=== PATIENT | female | born 1940 | race Caucasian/White ===

== ENCOUNTER 2016-12-17 22:08 | Inpatient (IN) | payer MEDICARE, OTHER ==
[2016-12-17 22:26] LABS: #Basophils 0.1 thou/uL (0.0-0.2); #Lymphocytes 1.1 thou/uL (1.20-3.40); #Monocytes 0.7 thou/uL (0.11-0.59); #Neutrophils 9.7 thou/uL (1.40-6.50); %Basophils 0.5 % (0.0-1.0); %Eosinophils 0.2 % (0.0-10.0); %Lymphocytes 9.1 % (21.0-51.0); %Monocytes 6.2 % (0.0-10.0); Hematocrit 33.6 % (36.0-47.0); Mean Platelet Volume 7.9 fL (7.4-10.4); Red Blood Cell (RBC) Count 3.62 mill/uL (4.20-5.40); White Blood Cell (WBC) Count 11.5 thou/uL (4.8-10.8)
[2016-12-17 22:32] LABS: PTT 30.8 SEC (22.9-36.1); Prothrombin Time 14.5 SEC (12.0-14.7)
--- NOTE | 2016-12-17 22:33 | RAD ---
EXAM: CHEST ONE VIEW 12/17/16 HISTORY: Trauma. Fall. Intubation. COMPARISON: 03/07/15. FINDINGS: Supine chest radiographic images. Endotracheal tube at the thoracic inlet. Consider advancing endotr acheal tube. Normal cardiac silhouette. Pulmonary vessels are slightly prominent. No pneumothorax on this supine projection. No osseous abnormalities. Normal cardiac silhouette. Left humeral prosthesis is noted. IMPRESSION: 1. Endotracheal tube, at the level of the thoracic inlet. Consider advancement. 2. Patchy interstitial opacities in the lung parenchyma. Correlate for aspiration or infiltrate . POS: [facility]
[2016-12-17 22:40] LABS: Oxyhemoglobin 96.9 % (94.0-97.0); Sodium 136 mmol/L (135-148)
[2016-12-17 22:45] LABS: ALT (SGPT) 26 U/L (8-55); AST (SGOT) 41 U/L (5-34); Alkaline Phosphatase 97 U/L (40-150); Anion Gap 18 mmol/L (10-20); BUN (Urea Nitrogen) 29 mg/dL (9.8-20.1); Bilirubin, Total 0.6 mg/dL (0.2-1.2); Calc. Creatinine Clearance 0 mL/min (70-130); Calcium 9.3 mg/dL (7.8-10.44); Carbon Dioxide 19 mmol/L (23-31); Chloride 101 mmol/L (98-107); Estimated GFR-MDRD 42; Globulin 3.1 g/dL (2.4-3.5); Lipase 26 U/L (8-78); Protein, Total 7.1 g/dL (6.0-8.3)
--- NOTE | 2016-12-17 22:46 | CT ---
EXAM: NONCONTRAST HEAD CT 12/17/16 COMPARISON: 12/02/16 HISTORY: Trauma. Patient was walking up stairs and fell backwards. TECHNIQUE: Noncontrast head CT is performed from skull base to skull vertex. FINDINGS: There is stable calcified lesion along the right parafalcine region. Calvarium is intact. Adequate a eration of the sinuses and mastoid air cells. Previously noted left frontal scalp hematoma has decre ased in size. There is evidence of extensive intracranial hemorrhage. Specifically, there are bilateral extra-axia l collections. The configuration would imply bilateral subdural hematomas. The possibility of an epi dural hematoma on the right frontal convexity cannot be completely excluded. The largest component o f the extra-axial hematoma is 1.1 cm. There is mass effect on the right cerebrum with sulcal effacem ent. There is mass effect upon the right lateral ventricle. Suprasellar cistern and ambient cisterns are effaced due to right to left subfalcine herniation of approximately 1.7 cm a well as probable u ncal herniation. There is subarachnoid blood along the left Sylvian fissure. Additional subarachnoid blood is noted on the medial parafalcine sulci. Small parenchymal hemorrhages in the left cerebrum and left midbrain/jose are noted. Pontine hematoma measures 7 mm. IMPRESSION: Extensive intracranial posttraumatic hemorrhage. Results of the study discussed with Dr. Garner, 12/17/16 at 10:29 p.m. Arun LOVE POS: [facility]
--- NOTE | 2016-12-17 22:51 | CT ---
CERVICAL SPINE CT WITHOUT CONTRAST 12/17/16 HISTORY: Fall. Fracture. COMPARISON: 04/24/16 TECHNIQUE: Cervical spine CT is performed without contrast. Reformatted images are submitted for interpretation . FINDINGS: Lateral masses of C1 and C2 articulate appropriately. There is appropriate articulation of the intra -articular facets. Odontoid process is intact. There is a cervical fusion hardware at C4, C5 and C6. No perihardware lucency. Lack of complete segmentation of C6-C7. Sagittal reformatted images demonstrate straightening of the normal cervical lordosis likely due to patient position, muscle spasm or cervical color. Current study is not tailored to assess for ligame ntous injury. There is no prevertebral soft tissue swelling. No epidural hematoma. Endotracheal tube is noted at the thoracic inlet. Consider advancement. Varying degrees of central canal stenosis and foraminal narrowing on the basis of degenerative mayen e. Cervical spine vertebral body height is maintained. No fracture. IMPRESSION: 1. No fracture. 2. Chronic changes as above. 3. Endotracheal tube as above. 4. Advancement of the endotracheal tube is recommended. 5. Results of the study discussed with Dr. Garner, 12/17/16 at 10:31 p.m. Code CR POS: [facility]
[2016-12-17 22:53] LABS: Mechanical Tidal Volume 450 ml; Modified Allen's Test POSITIVE; Pressure Support 10 cmH2O; Vent YES
[2016-12-17 22:54] LABS: Mode SIMV
--- NOTE | 2016-12-17 23:13 | RAD ---
EXAM: ONE VIEW ABDOMEN 12/17/16 HISTORY: Trauma. NG tube placement. FINDINGS: Nasogastric tube appears to terminate at the proximal small bowel loops. Bowel gas pattern is nonspe cific. No evidence of pneumoperitoneum on this supine projection. IMPRESSION: NG tube as above. POS: [facility]
[2016-12-17 23:24] LABS: Bilirubin Negative (Negative); Blood, Urine Negative (Negative); Glucose, Urine (Dipstick) Negative (Negative); Ketone, Urine 15 mg/dL (Negative); Nitrite Negative (Negative); Protein, Urine (Dipstick) 100 mg/dL (Neg-Trace); Urobilinogen 0.2 mg/dL (0.2-1.0)
[2016-12-17 23:26] LABS: Bacteria/HPF None Seen HPF (None Seen); Hyaline Casts/LPF 0-3 HYALINE CAST LPF (0-3 Hyaline); RBC/HPF 0-3 HPF (0-3); Squamous Epithelial None Seen HPF (0-3); WBC/HPF None Seen HPF (0-3)
[2016-12-18] MEDS ORDERED: Acetaminophen 650 MG Suppository PR PRN (00:20)
[2016-12-18] MEDS ORDERED: Lactated Ringer's 1,000 ML IV SCH (00:30)
[2016-12-18 00:42] VITALS: BMI 26.6
[2016-12-18 01:10] VITALS: TEMP 91.9
--- NOTE | 2016-12-18 06:58 | HP ---
DATE OF SERVICE: 12/18/2016 This is a 50-minute initial hospital visit note, in which 50 minutes were spent in review of the sissy ging record, evaluation, and examination of the patient, and formulation of plan. Greater than 50% of time was spent in counseling on Jennifer Judge. CHIEF COMPLAINT: Catastrophic right greater than left-sided acute subdural hematoma with mass effec t, midline shift, herniation and, coma, on Plavix, unwitnessed fall. HISTORY OF PRESENT ILLNESS: Ms. Judge is a 76-year-old woman. She has a history of undergoing an ACDF by my colleague, Dr. Frank, a couple of years ago. Unfortunately, she was found down by her this evening. It was unknown how long she had been down, but her figured at least 20-30 minutes. She was unresponsive at the scene. EMS was activated. CPR was initiated, and she w as transferred here, and head and cervical spine CT were performed. I do not see any cervical spine fracture. She has hardware in the subaxial cervical spine. Unfortunately on head CT, she has a ve ry large approximately 2 cm right-sided acute subdural hematoma, evidence of hyperacute bleeding and approximately 18 mm of right to left midline shift. There is also left-sided acute subdural hemato ma as well, but also the presence of Duret hemorrhages indicating significant intracranial hypertens ion. PHYSICAL EXAMINATION: She has been a GCS 3T since her arrival on our team exam. On my exam, she is a GCS 3T. Her left pupil is 6 mm and nonreactive, right pupil is 5 mm and nonreactive. She has no corneal responses and no gag response. No cough response. No movement in her extremities to noxio us stimuli with the exception of very weak triple flexion in the right lower extremity. She is kylah ycardic with a heart rate of 44 and has had systolic blood pressure into 180 range. IMPRESSION AND PLAN: I had a long discussion with the patient's and family. I have let the m know the grave prognosis here and that this is an unsurvivable hemorrhage. They will contact any further family members and plan for pursuance of comfort care measures and extubation when the famil y arrives. They wish that she be a DO NOT RESUSCITATE at this point in case any hemodynamic instabi lity ensues, which the patient evidently has begun to have periods of instability even at this point . 1. Large acute subdural hematoma, on Plavix with unwitnessed fall. 2. History of cervical spine surgery.
--- NOTE | 2016-12-20 14:04 | DS ---
Turner Thompson PA-C dictating for Dr. Flaquito Berrios. DATE OF ADMISSION: 12/17/2016 DATE OF DISCHARGE: 12/18/2016 The patient presented to [facility] on the evening of 12/17/2016 having sustained an u nwitnessed fall with a catastrophic right greater than left-sided acute subdural hematoma with signif icant mass effect, midline shift and herniation. The patient was on Plavix and subsequently due to h er injury suffered a coma. Both Dr. Berrios and Carlos examined the patient and unfortunately the head CT showed significant acute subdural hematoma incompatible with life. She was a GCS 3T arriving to the emergency room via EMS. Dr. Berrios spent a significant amount of time on counseling and coordinating patient's care with her family, explaining to them, updating them on the patient's findings on CT sc an and the grim prognosis. After having this discussion, the patient's family decided to make her DN R/DNI and at approximately 3 a.m. on the morning of 12/18/2016 the patient after she was extu bated per family's wishes.
== END 2016-12-18 05:22 | disposition expired | DRG 82 ==
LOC: ERS 22:08 → CCU 23:23
PROVIDERS: ADMIT Surgery; ATTEND Surgery
PROC: 5A1935Z Respiratory Ventilation, Less than 24 Consecutive Hours (ICD-10-PCS; principal; 2016-12-17)
DX: G93.5 Compression of brain; R00.1 Bradycardia, unspecified; E11.9 Type 2 diabetes mellitus without complications; M06.9 Rheumatoid arthritis, unspecified; I10 Essential (primary) hypertension; Z66 Do not resuscitate; W19.XXXA Unspecified fall, initial encounter; Z51.5 Encounter for palliative care; I25.2 Old myocardial infarction; E78.5 Hyperlipidemia, unspecified; Z79.4 Long term (current) use of insulin; G47.30 Sleep apnea, unspecified; F41.9 Anxiety disorder, unspecified; F32.9 Major depressive disorder, single episode, unspecified; Z87.891 Personal history of nicotine dependence; Z98.1 Arthrodesis status
CPT/HCPCS: 36416; 51702; 70450; 71010; 72125; 74000; 80053; 81003; 81015; 82805; 83690; 85025; 85610; 85730; 86850; 86900; 86901; 93005; 94002; 94003; 94760; 99292; G0390